=== PATIENT | male | born 1945 | race African-American/Black ===

== ENCOUNTER 2018-02-04 07:13 | Emergency (ER) | payer BC ==
[2018-02-04] MEDS: cefTRIAXone IM 250 MG VIAL IM (07:53)
[2018-02-04] MEDS: metroNIDAZOLE 500 MG TABLET PO (07:53)
[2018-02-04] MEDS: AZITHROMYCIN 250 MG TABLET. PO (07:54)
[2018-02-04 07:58] LABS: BILIRUBIN,URINE NEGATIVE (NEG); CLARITY,URINE CLEAR; COLOR,URINE YELLOW; GLUCOSE,URINE NEGATIVE (NEG); NITRITE,URINE NEGATIVE (NEG); PH,URINE 5.5; PROTEIN,URINE NEGATIVE (NEG-TRACE); UROBILINOGEN,URINE 0.2 mg/dL (0.2 mg/dL)
[2018-02-04 08:10] LABS: BACTERIA,URINE 0 /HPF (0-FEW); RBC,URINE 0 /HPF (0-2); SQUAMOUS EPITHELIAL CELL,UR OCC /LPF
== END 2018-02-04 08:11 | disposition home or self-care (01) ==
LOC: ER 08:11
DX: Z11.3 Encounter for screening for infections with a predominantly sexual mode of transmission (principal); I10 Essential (primary) hypertension
CPT/HCPCS: 81001; 87491; 87591; 96372; 99284; J0696; Q0144